=== PATIENT | female | born 1965 | race Caucasian/White ===

== ENCOUNTER 2022-01-13 13:28 | Inpatient (IN) | payer MEDICAID, MEDICARE ==
[2022-01-13] MEDS ORDERED: Sodium Chloride 0.9% 10 ML Syringe FLUSH PRN (15:24)
[2022-01-13] MEDS ORDERED: Acetaminophen/HYDROcodone 325-5 MG Tab PO PRN (16:56)
[2022-01-13] MEDS ORDERED: Ondansetron 4 MG Tab.DIS PO PRN (16:56)
[2022-01-13] MEDS ORDERED: Piperacillin/Tazobactam 3.375 GM in Sodium Chloride 0.9% 100 ML IV ONE (17:01)
[2022-01-13] MEDS ORDERED: Piperacillin/Tazobactam 4.5 GM in Sodium Chloride 0.9% 100 ML IV ONE (20:30)
[2022-01-13] MEDS ORDERED: Piperacillin/Tazobactam 4.5 GM in Sodium Chloride 0.9% 100 ML IV SCH (21:00)
[2022-01-14] MEDS: Piperacillin/Tazobactam 4.5 GM in Sodium Chloride 0.9% 100 ML IV SCH ×3 (02:57→20:00)
[2022-01-14] MEDS: Cholecalciferol (Vitamin D3) 25 MCG Tab PO SCH (08:36)
[2022-01-14] MEDS: Docusate Sodium 100 MG Cap PO SCH (08:36)
[2022-01-14] MEDS: Levothyroxine 75 MCG Tab PO SCH (08:36)
[2022-01-14] MEDS: Divalproex Sodium Delayed-Release 250 MG Tab.CR PO SCH (08:37)
[2022-01-14] MEDS: Enoxaparin 40 MG/0.4 ML Syringe SUBCUT SCH (08:43)
[2022-01-14] MEDS ORDERED: HYDROmorphone 0.5 MG/0.5 ML Syringe IVPUSH ONE (09:50)
[2022-01-14] MEDS ORDERED: Sodium Chloride 0.9% 1,000 ML IV SCH (12:15)
[2022-01-15] MEDS: Piperacillin/Tazobactam 4.5 GM in Sodium Chloride 0.9% 100 ML IV SCH ×3 (03:30→20:51)
[2022-01-15] MEDS: Cholecalciferol (Vitamin D3) 25 MCG Tab PO SCH (09:30)
[2022-01-15] MEDS: Docusate Sodium 100 MG Cap PO SCH (09:30)
[2022-01-15] MEDS: Levothyroxine 75 MCG Tab PO SCH (09:32)
[2022-01-15] MEDS: Divalproex Sodium Delayed-Release 250 MG Tab.CR PO SCH (09:33)
[2022-01-15] MEDS: Enoxaparin 40 MG/0.4 ML Syringe SUBCUT SCH (09:35)
[2022-01-15] MEDS ORDERED: REMDESIVIR 200 MG in Sodium Chloride 0.9% 250 ML IV ONE (13:00)
[2022-01-16] MEDS: Acetaminophen 325 MG Tab PO PRN (01:00)
[2022-01-16] MEDS: Piperacillin/Tazobactam 4.5 GM in Sodium Chloride 0.9% 100 ML IV SCH ×3 (02:31→20:30)
[2022-01-16] MEDS: Levothyroxine 75 MCG Tab PO SCH (06:39)
[2022-01-16] MEDS: Docusate Sodium 100 MG Cap PO SCH (08:13)
[2022-01-16] MEDS: Divalproex Sodium Delayed-Release 250 MG Tab.CR PO SCH (08:13)
[2022-01-16] MEDS: Cholecalciferol (Vitamin D3) 25 MCG Tab PO SCH (08:14)
[2022-01-16] MEDS: Enoxaparin 40 MG/0.4 ML Syringe SUBCUT SCH (08:14)
[2022-01-16] MEDS ORDERED: REMDESIVIR 100 MG in Sodium Chloride 0.9% 250 ML IV SCH (13:00)
[2022-01-17] MEDS: Piperacillin/Tazobactam 4.5 GM in Sodium Chloride 0.9% 100 ML IV SCH ×3 (03:00→18:39)
[2022-01-17] MEDS: Levothyroxine 75 MCG Tab PO SCH (06:57)
[2022-01-17] MEDS: Cholecalciferol (Vitamin D3) 25 MCG Tab PO SCH (09:08)
[2022-01-17] MEDS: Docusate Sodium 100 MG Cap PO SCH (09:08)
[2022-01-17] MEDS: Enoxaparin 40 MG/0.4 ML Syringe SUBCUT SCH (09:10)
[2022-01-17] MEDS: Divalproex Sodium Delayed-Release 250 MG Tab.CR PO SCH (09:10)
[2022-01-17] MEDS: REMDESIVIR 100 MG in Sodium Chloride 0.9% 250 ML IV SCH (15:40)
[2022-01-18] MEDS: Piperacillin/Tazobactam 4.5 GM in Sodium Chloride 0.9% 100 ML IV SCH ×3 (03:00→18:31)
[2022-01-18] MEDS: Levothyroxine 75 MCG Tab PO SCH (05:04)
[2022-01-18] MEDS: Cholecalciferol (Vitamin D3) 25 MCG Tab PO SCH (10:23)
[2022-01-18] MEDS: Enoxaparin 40 MG/0.4 ML Syringe SUBCUT SCH (10:23)
[2022-01-18] MEDS: Divalproex Sodium Delayed-Release 250 MG Tab.CR PO SCH (10:24)
[2022-01-18] MEDS: Docusate Sodium 100 MG Cap PO SCH (10:25)
[2022-01-18] MEDS: REMDESIVIR 100 MG in Sodium Chloride 0.9% 250 ML IV SCH (14:56)
[2022-01-19] MEDS: Piperacillin/Tazobactam 4.5 GM in Sodium Chloride 0.9% 100 ML IV SCH (03:15)
[2022-01-19] MEDS: Levothyroxine 75 MCG Tab PO SCH (06:35)
[2022-01-19] MEDS: Enoxaparin 40 MG/0.4 ML Syringe SUBCUT SCH (09:59)
[2022-01-19] MEDS: Divalproex Sodium Delayed-Release 250 MG Tab.CR PO SCH (09:59)
[2022-01-19] MEDS: Docusate Sodium 100 MG Cap PO SCH (09:59)
[2022-01-19] MEDS: Cholecalciferol (Vitamin D3) 25 MCG Tab PO SCH (09:59)
[2022-01-19] MEDS: Amoxicillin/Clavulanate K 875-125 MG Tab PO SCH ×2 (09:59→20:30)
[2022-01-19] MEDS: REMDESIVIR 100 MG in Sodium Chloride 0.9% 250 ML IV SCH (15:34)
[2022-01-19] MEDS: Acetaminophen 325 MG Tab PO PRN (20:30)
[2022-01-20] MEDS: Levothyroxine 75 MCG Tab PO SCH (05:57)
[2022-01-20] MEDS: Amoxicillin/Clavulanate K 875-125 MG Tab PO SCH ×2 (09:38→20:40)
[2022-01-20] MEDS: Acetaminophen 325 MG Tab PO PRN ×2 (09:39→20:40)
[2022-01-20] MEDS: Cholecalciferol (Vitamin D3) 25 MCG Tab PO SCH (09:39)
[2022-01-20] MEDS: Docusate Sodium 100 MG Cap PO SCH (09:39)
[2022-01-20] MEDS: Enoxaparin 40 MG/0.4 ML Syringe SUBCUT SCH (09:40)
[2022-01-20] MEDS: Divalproex Sodium Delayed-Release 125 MG Cap.Sprink PO SCH (09:40)
[2022-01-21] MEDS: Levothyroxine 75 MCG Tab PO SCH (06:04)
[2022-01-21] MEDS: Amoxicillin/Clavulanate K 875-125 MG Tab PO SCH (08:53)
[2022-01-21] MEDS: Divalproex Sodium Delayed-Release 125 MG Cap.Sprink PO SCH (08:53)
[2022-01-21] MEDS: Docusate Sodium 100 MG Cap PO SCH (08:53)
[2022-01-21] MEDS: Cholecalciferol (Vitamin D3) 25 MCG Tab PO SCH (08:53)
[2022-01-21] MEDS: Enoxaparin 40 MG/0.4 ML Syringe SUBCUT SCH (09:09)
== END 2022-01-21 18:15 | DRG 570 ==
LOC: JD.ED 13:28 → JD.MS 18:01
PROVIDERS: ADMIT Hospitalist; ATTEND Hospitalist
PROC: 0JB70ZZ Excision of Back Subcutaneous Tissue and Fascia, Open Approach (ICD-10-PCS; principal; 2022-01-13)
PROC: XW033E5 Introduction of Remdesivir Anti-infective into Peripheral Vein, Percutaneous Approach, New Technology Group 5 (ICD-10-PCS; 2022-01-15)
PROC: 8E0ZXY6 Isolation (ICD-10-PCS; 2022-01-15)
DX: L89.100 Pressure ulcer of unspecified part of back, unstageable (principal); L89.150 Pressure ulcer of sacral region, unstageable; U07.1 COVID-19; I96 Gangrene, not elsewhere classified; R62.7 Adult failure to thrive; E03.9 Hypothyroidism, unspecified; E88.09 Other disorders of plasma-protein metabolism, not elsewhere classified; D53.9 Nutritional anemia, unspecified; L89.159 Pressure ulcer of sacral region, unspecified stage; F03.90 Unspecified dementia, unspecified severity, without behavioral disturbance, psychotic disturbance, mood disturbance, and anxiety; G40.909 Epilepsy, unspecified, not intractable, without status epilepticus; Z79.890 Hormone replacement therapy; Q90.9 Down syndrome, unspecified; Z79.82 Long term (current) use of aspirin; Z79.899 Other long term (current) drug therapy; Z99.3 Dependence on wheelchair; Z87.898 Personal history of other specified conditions; Z68.24 Body mass index [BMI] 24.0-24.9, adult
CPT/HCPCS: 36415; 71045; 71045-26; 80048; 80053; 80202; 82607; 82746; 83605; 83735; 84100; 85007; 85025; 85027; 85610; 86140; 87040; 87641; 97162-GP; 97530-GP; 97597-GP; 99222; 99233; 99239; 99283; 99284; A9270-GY; J1170; J1650; J2543; J3370; J7030; J7050; U0002